=== PATIENT | male | born 1935 | race African-American/Black ===

== ENCOUNTER 2017-10-05 13:47 | Inpatient (IN) | payer MEDICARE, MEDICAID ==
[~2017-10-05] VITALS: Ht 165.1 cm; Wt 77.3 kg
[~2017-10-05 13:47] MED LIST: ALLO100T PO; FERR-63 PO; LISI10TA5 PO; NIAC500T5 PO; SYN150 PO
[2017-10-05 15:23] LABS: HEMATOCRIT. 40.1 % (42.0-52.0); HEMOGLOBIN. 12.8 g/dL (14.0-18.0); MEAN CORPUSCULAR HEMOGLOBIN 29.4 pg (28.0-32.0); MEAN CORPUSCULAR VOLUME 91.8 fL (80.0-94.0); MEAN PLATELET VOLUME 10.5 fl (7.4-10.4); PLATELET 110 x1000/uL (130-400); RED BLOOD CELL COUNT 4.37 mill/uL (4.7-6.1); RED CELL DISTRIBUTION WIDTH 22.4 % (11.6-14.6)
[2017-10-05 15:28] LABS: INR 1.1; PROTHROMBIN TIME 11.9 sec (9.4-11.6)
[2017-10-05 15:30] LABS: CLARITY URINE CLOUDY (CLEAR); COLOR URINE YELLOW (YELLOW); KETONES URINE NEGATIVE (NEGATIVE); LEUKOCYTE ESTERASE URINE TRACE (NEGATIVE); NITRITE URINE NEGATIVE (NEGATIVE); OCCULT BLOOD URINE NEGATIVE (NEGATIVE); PROTEIN URINE NEGATIVE (NEGATIVE); SPECIFIC GRAVITY URINE 1.017 (1.005-1.030)
[2017-10-05 15:33] LABS: CHLORIDE 125 mEq/L (98-107)
[2017-10-05 15:40] LABS: CREATINE KINASE 40 IU/L (39-308)
[2017-10-05 15:42] LABS: AMMONIA 34 uMol/L (<32)
[2017-10-05 15:53] LABS: PLATELET ESTIMATE DECREASED
[2017-10-05] MEDS ORDERED: SODIUM CHLORIDE 0.45% 250 ML IV ONE (16:00)
[2017-10-05 17:05] LABS: BG BASE EXCESS 2.6 mmol/L (-2.0-2.0); BG CARBOXYHEMOGLOBIN 1.2 % (0.5-1.5); BG DEOXYHEMOGLOBIN 1.5 % (0.0-5.0); BG FRACTION INSPIRED OXYGEN 32; BG HCO3 ACT 26.6 mmol/L (22.0-26.0); BG METHEMOGLOBIN 0.3 % (0.0-1.5); BG OXYGEN SATURATION 98.5 % (92.0-98.5); BG PCO2 39.1 mmHg (35.0-45.0); BG PH 7.451 (7.350-7.450); BG PO2 128.6 mmHg (75.0-100.0); BG SAMPLE SITE RIGHT RADIAL; BG TOTAL HEMOGLOBIN 13.5 g/dL (12.0-18.0); BG VENT MODE NASAL CANNULA
[2017-10-05 17:11] LABS: T4 FREE 0.59 ng/dL (0.76-1.46)
[2017-10-05] MEDS ORDERED: AZITHROMYCIN 500 MG in DEXT 5% WATER 250 ML IV SCH (19:00)
[2017-10-05] MEDS ORDERED: CEFTRIAXONE 1 G PREMIX 50 ML IV ONE (19:00)
[2017-10-05 23:00] VITALS: BP 92/60
[2017-10-05] MEDS ORDERED: DEXTROSE 50% WATER 50ML SYRINGE IV PRN (23:45)
[2017-10-06] MEDS: PANTOPRAZOLE SODIUM 40 MG/VIAL IV SCH ×2 (01:57→09:12)
[2017-10-06] MEDS: DEXTROSE 5% WATER 1,000 ML IV SCH ×4 (01:58→22:04)
[2017-10-06] MEDS ORDERED: MOM PO (03:23)
[2017-10-06] MEDS ORDERED: BISA10SU62 RC (03:23)
[2017-10-06] MEDS ORDERED: PROT40 PO (03:23)
[2017-10-06] MEDS ORDERED: INSLIS SUBCUT (03:23)
[2017-10-06] MEDS ORDERED: LEVO112T7 PO (03:23)
[2017-10-06] MEDS ORDERED: FE300LUD PO (03:23)
[2017-10-06] MEDS ORDERED: NA P230E RC (03:23)
[2017-10-06] MEDS ORDERED: MEMA10TA2 PO (03:23)
[2017-10-06] MEDS ORDERED: HYDR12.54 PO (03:23)
[2017-10-06] MEDS ORDERED: QUET25TA PO (03:23)
[2017-10-06] MEDS ORDERED: IPRA3AMP9 HHN (03:23)
[2017-10-06] MEDS ORDERED: MULT-1146 PO (03:23)
[2017-10-06 04:00] VITALS: BP 101/69
[2017-10-06 05:42] LABS: BASOPHILS % 0.3 % (0.0-2.0); EOSINOPHILS % 0.5 % (0.0-5.0); HEMATOCRIT. 39.8 % (42.0-52.0); HEMOGLOBIN. 12.5 g/dL (14.0-18.0); LYMPHOCYTES % 8.4 % (20.0-50.0); MEAN CORPUSCULAR VOLUME 92.1 fL (80.0-94.0); MEAN PLATELET VOLUME 10.2 fl (7.4-10.4); MONOCYTES % 7.5 % (2.0-8.0); NEUTROPHILS % 83.3 % (40.0-76.0); PLATELET 79 x1000/uL (130-400); RED BLOOD CELL COUNT 4.32 mill/uL (4.7-6.1); RED CELL DISTRIBUTION WIDTH 22.1 % (11.6-14.6)
[2017-10-06] MEDS: INSULIN LISPRO 100 UNITS/ML SUBCUT SCH ×4 (06:00→23:54)
[2017-10-06 06:02] LABS: INR 1.2; PARTIAL THROMBOPLASTIN TIME 30.5 sec (23.4-31.0); PROTHROMBIN TIME 12.2 sec (9.4-11.6)
[2017-10-06 06:15] LABS: CHLORIDE 123 mEq/L (98-107)
[2017-10-06] MEDS: BLOOD SUGAR DIAGNOSTIC STRIP TEST SCH ×4 (06:24→17:39)
[2017-10-06] MEDS: LEVOTHYROXINE SODIUM 112MCG TABLET PO SCH ×2 (07:40→08:37)
[2017-10-06 08:00] VITALS: BP 101/70
[2017-10-06] MEDS ORDERED: ALLOPURINOL 100 MG TABLET PO SCH (09:00)
[2017-10-06] MEDS: ENOXAPARIN 30MG/0.3ML SYR SUBCUT SCH (09:00)
[2017-10-06 12:00] VITALS: BP 80/59
[2017-10-06] MEDS ORDERED: SODIUM CHLORIDE 0.9% 250 ML IV ONE (12:20)
[2017-10-06] MEDS ORDERED: CEFAZOLIN 1000MG PREMIX 50 ML IV NR (13:00)
[2017-10-06] MEDS ORDERED: FENTANYL CITRATE/PF 50MCG/ML 2ML VIAL ONE (14:45)
[2017-10-06] MEDS ORDERED: MIDAZOLAM HCL 5 MG/5 ML VIAL ONE (14:46)
[2017-10-06] MEDS ORDERED: CEFAZOLIN 1000MG PREMIX 50 ML IV ONE (15:02)
[2017-10-06] MEDS ORDERED: MIDAZOLAM HCL 5 MG/5 ML VIAL IV PRN (15:26)
[2017-10-06] MEDS ORDERED: SIMETHICONE 40 MG/0.6 ML 30ML ONE (16:00)
[2017-10-06] MEDS ORDERED: BACTERIOSTATIC SODIUM CHLORIDE 0.9% 30ML VIAL IJ ONE (16:00)
[2017-10-06 18:45] LABS: PREALBUMIN 8.8 mg/dL (20.0-40.0)
[2017-10-06 20:00] VITALS: BP 99/72
[2017-10-06] MEDS: IPRATROPIUM/ALBUTEROL 0.5-3(2.5)MG/3ML NEB HHN SCH (20:25)
[2017-10-06] MEDS: AZITHROMYCIN 500 MG in DEXT 5% WATER 250 ML IV SCH (20:39)
[2017-10-06] MEDS: MEMANTINE HCL 5MG TABLET NG SCH (20:39)
[2017-10-06] MEDS ORDERED: CEFTRIAXONE 1,000 MG in DEXTROSE 5% WATER 50 ML IV SCH (22:00)
[2017-10-06] MEDS: CEFTRIAXONE 1 G PREMIX 50 ML IV SCH (22:03)
[2017-10-07] VITALS: BP 98/80
[2017-10-07] MEDS: IPRATROPIUM/ALBUTEROL 0.5-3(2.5)MG/3ML NEB HHN SCH ×4 (01:48→20:16)
[2017-10-07 04:00] VITALS: BP 92/57
[2017-10-07] MEDS: BLOOD SUGAR DIAGNOSTIC STRIP TEST SCH ×3 (05:37→23:29)
[2017-10-07] MEDS: INSULIN LISPRO 100 UNITS/ML SUBCUT SCH ×3 (05:37→23:29)
[2017-10-07 07:03] LABS: HEMATOCRIT. 38.9 % (42.0-52.0); HEMOGLOBIN. 12.2 g/dL (14.0-18.0); MEAN CORPUSCULAR HEMOGLOBIN 29.1 pg (28.0-32.0); MEAN CORPUSCULAR VOLUME 92.5 fL (80.0-94.0); MEAN PLATELET VOLUME 10.2 fl (7.4-10.4); PLATELET 89 x1000/uL (130-400); RED BLOOD CELL COUNT 4.21 mill/uL (4.7-6.1); RED CELL DISTRIBUTION WIDTH 21.6 % (11.6-14.6)
[2017-10-07 08:00] VITALS: BP 99/68
[2017-10-07] MEDS: ALLOPURINOL 100 MG TABLET NG SCH (08:21)
[2017-10-07] MEDS: LEVOTHYROXINE SODIUM 125MCG TABLET NG SCH (08:21)
[2017-10-07] MEDS: MEMANTINE HCL 5MG TABLET NG SCH ×2 (08:21→20:08)
[2017-10-07] MEDS: FERROUS SULFATE 300MG/5ML UDC GT SCH (08:21)
[2017-10-07] MEDS: ENOXAPARIN 30MG/0.3ML SYR SUBCUT SCH (08:23)
[2017-10-07] MEDS: PANTOPRAZOLE SODIUM 40 MG/VIAL IV SCH (09:57)
[2017-10-07] MEDS: DEXTROSE 5% WATER 1,000 ML IV SCH ×2 (10:11→20:08)
[2017-10-07 12:00] VITALS: BP 95/50
[2017-10-07 13:41] LABS: PLATELET ESTIMATE DECREASED
[2017-10-07 16:00] VITALS: BP 97/61
[2017-10-07 20:00] VITALS: BP 105/66
[2017-10-07] MEDS: AZITHROMYCIN 500 MG in DEXT 5% WATER 250 ML IV SCH (20:08)
[2017-10-07] MEDS: CEFTRIAXONE 1 G PREMIX 50 ML IV SCH (21:30)
[2017-10-08] VITALS: BP 97/64
[2017-10-08] MEDS: IPRATROPIUM/ALBUTEROL 0.5-3(2.5)MG/3ML NEB HHN SCH ×4 (02:35→20:05)
[2017-10-08 04:00] VITALS: BP 108/66
[2017-10-08] MEDS: BLOOD SUGAR DIAGNOSTIC STRIP TEST SCH ×4 (05:43→23:58)
[2017-10-08] MEDS: INSULIN LISPRO 100 UNITS/ML SUBCUT SCH ×4 (05:43→23:58)
[2017-10-08 08:00] VITALS: BP 90/66
[2017-10-08] MEDS: LEVOTHYROXINE SODIUM 125MCG TABLET NG SCH (08:44)
[2017-10-08] MEDS: MEMANTINE HCL 5MG TABLET NG SCH ×2 (08:44→21:31)
[2017-10-08] MEDS: ALLOPURINOL 100 MG TABLET NG SCH (08:44)
[2017-10-08] MEDS: FERROUS SULFATE 300MG/5ML UDC GT SCH (08:44)
[2017-10-08] MEDS: ENOXAPARIN 30MG/0.3ML SYR SUBCUT SCH (08:45)
[2017-10-08] MEDS: PANTOPRAZOLE SODIUM 40 MG/VIAL IV SCH (08:47)
[2017-10-08 08:52] LABS: HEMATOCRIT. 34.5 % (42.0-52.0); HEMOGLOBIN. 11.1 g/dL (14.0-18.0); MEAN CORPUSCULAR HEMOGLOBIN 29.5 pg (28.0-32.0); MEAN CORPUSCULAR VOLUME 91.6 fL (80.0-94.0); MEAN PLATELET VOLUME 9.9 fl (7.4-10.4); PLATELET 97 x1000/uL (130-400); RED BLOOD CELL COUNT 3.76 mill/uL (4.7-6.1); RED CELL DISTRIBUTION WIDTH 20.6 % (11.6-14.6)
[2017-10-08 12:00] VITALS: BP 105/63
[2017-10-08 13:35] LABS: PLATELET ESTIMATE DECREASED
[2017-10-08 16:00] VITALS: BP 99/66
[2017-10-08 20:00] VITALS: BP 163/61
[2017-10-08] MEDS: AZITHROMYCIN 500 MG TABLET GT SCH (21:31)
[2017-10-08] MEDS: CEFTRIAXONE 1 G PREMIX 50 ML IV SCH (21:31)
[2017-10-08] MEDS: DEXTROSE 5% WATER 1,000 ML IV SCH (21:32)
[2017-10-09] VITALS: BP 111/66
[2017-10-09] MEDS: IPRATROPIUM/ALBUTEROL 0.5-3(2.5)MG/3ML NEB HHN SCH ×4 (01:20→21:37)
[2017-10-09 04:00] VITALS: BP 112/56
[2017-10-09] MEDS: DEXTROSE 5% WATER 1,000 ML IV SCH ×2 (05:43→14:48)
[2017-10-09] MEDS: INSULIN LISPRO 100 UNITS/ML SUBCUT SCH ×3 (05:45→18:30)
[2017-10-09] MEDS: BLOOD SUGAR DIAGNOSTIC STRIP TEST SCH ×3 (05:45→18:00)
[2017-10-09 06:40] LABS: HEMATOCRIT. 33.7 % (42.0-52.0); HEMOGLOBIN. 10.5 g/dL (14.0-18.0); MEAN CORPUSCULAR HEMOGLOBIN 28.7 pg (28.0-32.0); MEAN CORPUSCULAR VOLUME 91.7 fL (80.0-94.0); MEAN PLATELET VOLUME 9.8 fl (7.4-10.4); PLATELET 114 x1000/uL (130-400); RED BLOOD CELL COUNT 3.67 mill/uL (4.7-6.1); RED CELL DISTRIBUTION WIDTH 20.6 % (11.6-14.6)
[2017-10-09 07:49] LABS: CHLORIDE 111 mEq/L (98-107)
[2017-10-09 07:54] LABS: PHOSPHORUS 1.8 mg/dL (2.5-4.9); T4 FREE 0.61 ng/dL (0.76-1.46)
[2017-10-09 08:00] VITALS: BP 118/57
[2017-10-09] MEDS: LEVOTHYROXINE SODIUM 125MCG TABLET NG SCH (09:57)
[2017-10-09] MEDS: PANTOPRAZOLE SODIUM 40 MG/VIAL IV SCH (09:57)
[2017-10-09] MEDS: ALLOPURINOL 100 MG TABLET NG SCH (09:57)
[2017-10-09] MEDS: MEMANTINE HCL 5MG TABLET NG SCH ×2 (09:57→21:21)
[2017-10-09] MEDS: FERROUS SULFATE 300MG/5ML UDC GT SCH (09:57)
[2017-10-09] MEDS: ENOXAPARIN 30MG/0.3ML SYR SUBCUT SCH (09:59)
[2017-10-09 12:00] VITALS: BP 112/78
[2017-10-09 16:00] VITALS: BP 103/47
[2017-10-09 16:24] LABS: PLATELET ESTIMATE DECREASED
[2017-10-09] MEDS: QUETIAPINE FUMARATE 25MG TABLET PO SCH (18:32)
[2017-10-09 20:00] VITALS: BP 105/64
[2017-10-09] MEDS ORDERED: POTASSIUM PHOS,M-BASIC-D-BASIC 20 MMOL in DEXT 5% WATER 243.3333 ML IV NR (20:00)
[2017-10-09] MEDS: LIOTHYRONINE SODIUM 5MCG TABLET PO SCH (21:20)
[2017-10-09] MEDS: LEVOTHYROXINE SODIUM 50MCG TABLET PO SCH (21:21)
[2017-10-09] MEDS: AZITHROMYCIN 500 MG TABLET GT SCH (21:21)
[2017-10-10] VITALS: BP 112/67
[2017-10-10] MEDS: BLOOD SUGAR DIAGNOSTIC STRIP TEST SCH ×5 (00:21→23:59)
[2017-10-10] MEDS: CEFTRIAXONE 1 G PREMIX 50 ML IV SCH ×2 (01:40→22:14)
[2017-10-10] MEDS: IPRATROPIUM/ALBUTEROL 0.5-3(2.5)MG/3ML NEB HHN SCH ×4 (02:31→20:40)
[2017-10-10 04:00] VITALS: BP 111/63
[2017-10-10] MEDS: INSULIN LISPRO 100 UNITS/ML SUBCUT SCH ×5 (06:00→23:59)
[2017-10-10 07:42] LABS: PHOSPHORUS 3.2 mg/dL (2.5-4.9)
[2017-10-10] MEDS: LEVOTHYROXINE SODIUM 50MCG TABLET PO SCH (08:18)
[2017-10-10 08:24] VITALS: BP 115/49
[2017-10-10] MEDS: QUETIAPINE FUMARATE 25MG TABLET PO SCH (09:24)
[2017-10-10] MEDS: FERROUS SULFATE 300MG/5ML UDC GT SCH (09:24)
[2017-10-10] MEDS: LIOTHYRONINE SODIUM 5MCG TABLET PO SCH ×2 (09:24→18:17)
[2017-10-10] MEDS: ENOXAPARIN 30MG/0.3ML SYR SUBCUT SCH (09:24)
[2017-10-10] MEDS: MEMANTINE HCL 5MG TABLET NG SCH ×2 (09:24→22:14)
[2017-10-10] MEDS: ALLOPURINOL 100 MG TABLET NG SCH (09:24)
[2017-10-10] MEDS: PANTOPRAZOLE SODIUM 40 MG/VIAL IV SCH (09:24)
[2017-10-10 12:48] VITALS: BP 91/54
[2017-10-10 17:02] VITALS: BP 94/55
[2017-10-10 20:00] VITALS: BP 106/61
[2017-10-10] MEDS: AZITHROMYCIN 500 MG TABLET GT SCH (22:14)
[2017-10-10 22:33] LABS: BG BASE EXCESS 1.5 mmol/L (-2.0-2.0); BG CARBOXYHEMOGLOBIN 0.3 % (0.5-1.5); BG DEOXYHEMOGLOBIN 2.6 % (0.0-5.0); BG FRACTION INSPIRED OXYGEN 28; BG HCO3 ACT 26.5 mmol/L (22.0-26.0); BG METHEMOGLOBIN 0.2 % (0.0-1.5); BG OXYGEN SATURATION 97.4 % (92.0-98.5); BG OXYHEMOGLOBIN 96.9 % (94.0-97.0); BG PCO2 43.2 mmHg (35.0-45.0); BG PH 7.405 (7.350-7.450); BG PO2 97.1 mmHg (75.0-100.0); BG SAMPLE SITE RIGHT RADIAL; BG TOTAL HEMOGLOBIN 11.6 g/dL (12.0-18.0); BG VENT MODE NASAL CANNULA
[2017-10-11] VITALS: BP 95/65
[2017-10-11] MEDS: IPRATROPIUM/ALBUTEROL 0.5-3(2.5)MG/3ML NEB HHN SCH ×4 (00:47→19:59)
[2017-10-11 04:00] VITALS: BP 95/58
[2017-10-11] MEDS: BLOOD SUGAR DIAGNOSTIC STRIP TEST SCH ×4 (05:39→23:40)
[2017-10-11] MEDS: INSULIN LISPRO 100 UNITS/ML SUBCUT SCH ×4 (05:41→23:41)
[2017-10-11 08:00] VITALS: BP 98/59
[2017-10-11 08:00] LABS: PHOSPHORUS 3.2 mg/dL (2.5-4.9)
[2017-10-11] MEDS: FAMOTIDINE 20MG TABLET GT SCH (08:34)
[2017-10-11] MEDS: QUETIAPINE FUMARATE 25MG TABLET PO SCH (08:34)
[2017-10-11] MEDS: ENOXAPARIN 40MG/0.4ML SYR SUBCUT SCH (08:34)
[2017-10-11] MEDS: FERROUS SULFATE 300MG/5ML UDC GT SCH (08:34)
[2017-10-11] MEDS: LEVOTHYROXINE SODIUM 50MCG TABLET PO SCH (08:34)
[2017-10-11] MEDS: ALLOPURINOL 100 MG TABLET NG SCH (08:34)
[2017-10-11] MEDS: LIOTHYRONINE SODIUM 5MCG TABLET PO SCH ×2 (08:34→17:44)
[2017-10-11] MEDS: MEMANTINE HCL 5MG TABLET NG SCH ×2 (08:34→21:00)
[2017-10-11 12:00] VITALS: BP 96/57
[2017-10-11 16:00] VITALS: BP 92/59
[2017-10-11 20:12] VITALS: BP 100/59
[2017-10-11] MEDS: AZITHROMYCIN 500 MG TABLET GT SCH (21:00)
[2017-10-11] MEDS: CEFTRIAXONE 1 G PREMIX 50 ML IV SCH (21:48)
[2017-10-11] MEDS ORDERED: SODIUM POLYSTYRENE SULFONATE 15 G/60 ML BOT GT SCH (23:42)
[2017-10-12] VITALS: BP 94/62
[2017-10-12] MEDS: IPRATROPIUM/ALBUTEROL 0.5-3(2.5)MG/3ML NEB HHN SCH ×4 (00:44→20:39)
[2017-10-12 04:00] VITALS: BP 91/60
[2017-10-12] MEDS ORDERED: SODIUM POLYSTYRENE SULFONATE 15 G/60 ML BOT GT SCH (04:00)
[2017-10-12] MEDS: BLOOD SUGAR DIAGNOSTIC STRIP TEST SCH ×3 (05:56→16:51)
[2017-10-12] MEDS: INSULIN LISPRO 100 UNITS/ML SUBCUT SCH ×3 (05:57→16:52)
[2017-10-12 07:16] LABS: HEMATOCRIT. 30.3 % (42.0-52.0); HEMOGLOBIN. 9.9 g/dL (14.0-18.0); MEAN CORPUSCULAR HEMOGLOBIN 29.3 pg (28.0-32.0); MEAN CORPUSCULAR VOLUME 89.7 fL (80.0-94.0); MEAN PLATELET VOLUME 9.5 fl (7.4-10.4); PLATELET 227 x1000/uL (130-400); RED BLOOD CELL COUNT 3.38 mill/uL (4.7-6.1); RED CELL DISTRIBUTION WIDTH 19.6 % (11.6-14.6)
[2017-10-12 08:00] VITALS: BP 104/69
[2017-10-12] MEDS: FERROUS SULFATE 300MG/5ML UDC GT SCH (08:56)
[2017-10-12] MEDS: ALLOPURINOL 100 MG TABLET NG SCH (08:56)
[2017-10-12] MEDS: ENOXAPARIN 40MG/0.4ML SYR SUBCUT SCH (08:56)
[2017-10-12] MEDS: MEMANTINE HCL 5MG TABLET NG SCH ×2 (08:57→21:49)
[2017-10-12] MEDS: LEVOTHYROXINE SODIUM 50MCG TABLET PO SCH (08:57)
[2017-10-12] MEDS: FAMOTIDINE 20MG TABLET GT SCH (08:57)
[2017-10-12] MEDS: LIOTHYRONINE SODIUM 5MCG TABLET PO SCH ×2 (08:57→17:01)
[2017-10-12 09:13] LABS: BG BASE EXCESS 3.2 mmol/L (-2.0-2.0); BG CARBOXYHEMOGLOBIN 0.4 % (0.5-1.5); BG DEOXYHEMOGLOBIN 9.7 % (0.0-5.0); BG FRACTION INSPIRED OXYGEN 21; BG METHEMOGLOBIN 0.2 % (0.0-1.5); BG OXYGEN SATURATION 90.2 % (92.0-98.5); BG OXYHEMOGLOBIN 89.7 % (94.0-97.0); BG PCO2 49.8 mmHg (35.0-45.0); BG PH 7.383 (7.350-7.450); BG PO2 59.1 mmHg (75.0-100.0); BG SAMPLE SITE RIGHT BRACHIAL; BG TOTAL HEMOGLOBIN 10.7 g/dL (12.0-18.0); BG VENT MODE ROOM AIR
[2017-10-12 12:00] VITALS: BP 107/69
[2017-10-12 14:55] LABS: PLATELET ESTIMATE NORMAL
[2017-10-12 16:00] VITALS: BP 100/68
[2017-10-12 20:00] VITALS: BP 117/63
[2017-10-12] MEDS: AZITHROMYCIN 500 MG TABLET GT SCH (21:49)
[2017-10-12] MEDS: CEFTRIAXONE 1 G PREMIX 50 ML IV SCH (21:49)
[2017-10-13] MEDS: BLOOD SUGAR DIAGNOSTIC STRIP TEST SCH ×2 (00:03→05:49)
[2017-10-13 00:12] VITALS: BP 109/74
[2017-10-13] MEDS: IPRATROPIUM/ALBUTEROL 0.5-3(2.5)MG/3ML NEB HHN SCH ×3 (01:00→14:01)
[2017-10-13 04:00] VITALS: BP 116/67
[2017-10-13] MEDS: INSULIN LISPRO 100 UNITS/ML SUBCUT SCH ×2 (05:49)
[2017-10-13] MEDS: LEVOTHYROXINE SODIUM 50MCG TABLET PO SCH (06:11)
[2017-10-13 08:00] VITALS: BP 107/69
[2017-10-13] MEDS: LIOTHYRONINE SODIUM 5MCG TABLET PO SCH (09:01)
[2017-10-13] MEDS: MEMANTINE HCL 5MG TABLET NG SCH (09:01)
[2017-10-13] MEDS: ALLOPURINOL 100 MG TABLET NG SCH (09:01)
[2017-10-13] MEDS: ENOXAPARIN 40MG/0.4ML SYR SUBCUT SCH (09:01)
[2017-10-13] MEDS: FAMOTIDINE 20MG TABLET GT SCH (09:01)
[2017-10-13] MEDS: FERROUS SULFATE 300MG/5ML UDC GT SCH (09:03)
[2017-10-13 12:00] VITALS: BP 116/73
[2017-10-13 15:05] VITALS: BP 107/69
[2017-10-13 16:00] VITALS: BP 124/60
== END 2017-10-13 17:43 | DRG 177 ==
LOC: ER 14:00 → 7WST 18:57 → EDBEDREQTM 19:00 → EDBEDREQ 19:00 → ENRESERV 20:52
PROVIDERS: ADMIT Internal Medicine Pulmonary Disease; ATTEND Internal Medicine Pulmonary Disease
PROC: 0DH64UZ Insertion of Feeding Device into Stomach, Percutaneous Endoscopic Approach (ICD-10-PCS; principal; 2017-10-06 15:00)
DX: J69.0 Pneumonitis due to inhalation of food and vomit (principal); E43 Unspecified severe protein-calorie malnutrition; J96.91 Respiratory failure, unspecified with hypoxia; L89.309 Pressure ulcer of unspecified buttock, unspecified stage; N17.9 Acute kidney failure, unspecified; G93.41 Metabolic encephalopathy; G30.9 Alzheimer's disease, unspecified; E11.22 Type 2 diabetes mellitus with diabetic chronic kidney disease; F02.80 Dementia in other diseases classified elsewhere, unspecified severity, without behavioral disturbance, psychotic disturbance, mood disturbance, and anxiety; I13.0 Hypertensive heart and chronic kidney disease with heart failure and stage 1 through stage 4 chronic kidney disease, or unspecified chronic kidney disease; E87.0 Hyperosmolality and hypernatremia; E87.2 Acidosis; I50.22 Chronic systolic (congestive) heart failure; E87.5 Hyperkalemia; E86.0 Dehydration; E03.9 Hypothyroidism, unspecified; E05.90 Thyrotoxicosis, unspecified without thyrotoxic crisis or storm; E06.3 Autoimmune thyroiditis; E78.5 Hyperlipidemia, unspecified; E83.39 Other disorders of phosphorus metabolism; I25.10 Atherosclerotic heart disease of native coronary artery without angina pectoris; F20.9 Schizophrenia, unspecified; I45.10 Unspecified right bundle-branch block; I48.0 Paroxysmal atrial fibrillation; J44.9 Chronic obstructive pulmonary disease, unspecified; M10.9 Gout, unspecified; N18.3 Chronic kidney disease, stage 3 (moderate); R62.7 Adult failure to thrive; Z95.810 Presence of automatic (implantable) cardiac defibrillator; Z95.5 Presence of coronary angioplasty implant and graft; Z79.899 Other long term (current) drug therapy; Z82.49 Family history of ischemic heart disease and other diseases of the circulatory system
CPT/HCPCS: 36415; 36600; 51702; 70450; 71045; 80048; 80053; 81003; 82140; 82375; 82533; 82550; 82805; 82962; 83036; 83520; 83605; 83735; 83880; 84100; 84134; 84439; 84443; 84481; 84484; 84550; 85025; 85610; 85730; 87040; 92610; 94640; 96365; 96375; 99285; A6261; C1893; C9113; J0456; J0690; J0696; J1650; J1815; J2250; J3010; J3490; J7050; J7060; J7070; J7620; A4315

== ENCOUNTER 2017-10-15 20:57 | Inpatient (IN) | payer MEDICARE, MEDICAID ==
[~2017-10-15] VITALS: Ht 170.2 cm; Wt 96.2 kg
[~2017-10-15 20:57] MED LIST changes: +BISA10SU62 RC; +FE300LUD PO; -FERR-63 PO; +HYDR12.54 PO; +INSLIS SUBCUT; +IPRA3AMP9 HHN; +LEVO112T7 PO; +MEMA10TA2 PO; +MOM PO; +MULT-1146 PO; +NA P230E RC; +PROT40 PO; +QUET25TA PO; -SYN150 PO
[2017-10-15] MEDS ORDERED: ACETAMINOPHEN 325MG TABLET PO STA (21:25)
[2017-10-15] MEDS ORDERED: SODIUM CHLORIDE 0.9% 1000ML BAG (SEPSIS BOLUS) IV ONE (21:30)
[2017-10-15 21:58] LABS: CHLORIDE 111 mEq/L (98-107); HEMATOCRIT. 30.3 % (42.0-52.0); MEAN CORPUSCULAR HEMOGLOBIN 29.6 pg (28.0-32.0); MEAN CORPUSCULAR VOLUME 89.7 fL (80.0-94.0); MEAN PLATELET VOLUME 8.4 fl (7.4-10.4); PLATELET 374 x1000/uL (130-400); RED BLOOD CELL COUNT 3.38 mill/uL (4.7-6.1); RED CELL DISTRIBUTION WIDTH 19.7 % (11.6-14.6)
[2017-10-15 22:00] LABS: INR 1.3; PROTHROMBIN TIME 13.4 sec (9.4-11.6)
[2017-10-15 23:13] LABS: CLARITY URINE CLOUDY (CLEAR); COLOR URINE YELLOW (YELLOW); KETONES URINE NEGATIVE (NEGATIVE); LEUKOCYTE ESTERASE URINE TRACE (NEGATIVE); NITRITE URINE NEGATIVE (NEGATIVE); OCCULT BLOOD URINE 2+ (NEGATIVE); PROTEIN URINE 1+ (NEGATIVE); SPECIFIC GRAVITY URINE 1.019 (1.005-1.030); UROBILINOGEN URINE 0.2 E.U./dL (0.2-1.0)
[2017-10-15] MEDS ORDERED: PIPERACILLIN/TAZ 3.375G PREMIX 50 ML IV ONE (23:15)
[2017-10-15] MEDS ORDERED: VANCOMYCIN 1 G PREMIX 200 ML IV ONE (23:15)
[2017-10-16] MEDS: IPRATROPIUM/ALBUTEROL 0.5-3(2.5)MG/3ML NEB HHN SCH (00:10)
[2017-10-16 02:04] LABS: ATYPICAL LYMPHOCYTES 1; NUCLEATED RED BLOOD CELLS 2 /100 WBC; PLATELET ESTIMATE NORMAL
[2017-10-16 11:02] VITALS: BP 116/72
[2017-10-16 12:00] VITALS: BP 116/72
[2017-10-16 14:36] LABS: BG CARBOXYHEMOGLOBIN 0.3 % (0.5-1.5); BG DEOXYHEMOGLOBIN 2.9 % (0.0-5.0); BG FRACTION INSPIRED OXYGEN 28; BG HCO3 ACT 30.5 mmol/L (22.0-26.0); BG METHEMOGLOBIN 0.3 % (0.0-1.5); BG OXYGEN SATURATION 97.1 % (92.0-98.5); BG OXYHEMOGLOBIN 96.5 % (94.0-97.0); BG PCO2 64.4 mmHg (35.0-45.0); BG PH 7.293 (7.350-7.450); BG PO2 112.2 mmHg (75.0-100.0); BG SAMPLE SITE LEFT RADIAL; BG TOTAL HEMOGLOBIN 9.3 g/dL (12.0-18.0); BG VENT MODE NASAL CANNULA
[2017-10-16 16:00] VITALS: BP 97/54
[2017-10-16] MEDS ORDERED: NA PHOS,M-B/NA PHOS,DI-BA ENEMA 118ML PR PRN (19:00)
[2017-10-16] MEDS ORDERED: DOCUSATE SODIUM 100MG CAPSULE PO PRN (19:00)
[2017-10-16] MEDS ORDERED: ACETAMINOPHEN 650MG/20.3ML UDC GT PRN (19:00)
[2017-10-16] MEDS ORDERED: IPRATROPIUM/ALBUTEROL 0.5-3(2.5)MG/3ML NEB INH PRN (19:00)
[2017-10-16 20:00] VITALS: BP 112/61
[2017-10-16] MEDS ORDERED: PIPERACILLIN/TAZ 3.375G PREMIX 50 ML IV SCH (21:00)
[2017-10-16] MEDS ORDERED: VANCOMYCIN 500 MG PREMIX 100 ML IV NR (21:30)
[2017-10-16] MEDS: PANTOPRAZOLE SODIUM 40 MG/VIAL IV SCH (21:56)
[2017-10-16] MEDS: LEVOTHYROXINE SODIUM 75MCG TABLET NG SCH (21:56)
[2017-10-16] MEDS: DEXT 5%/0.45% NACL 1000ML 1,000 ML IV SCH (21:56)
[2017-10-16] MEDS: LIOTHYRONINE SODIUM 5MCG TABLET NG SCH (21:56)
[2017-10-16] MEDS: ENOXAPARIN 30MG/0.3ML SYR SUBCUT SCH (21:57)
[2017-10-16] MEDS: PIPERACILLIN/TAZ 3.375G PREMIX 50 ML IV SCH (23:12)
[2017-10-17] VITALS: BP 116/78
[2017-10-17 00:07] LABS: CREATINE KINASE MB FRACTION 2.1 ng/mL (0.5-3.6)
[2017-10-17] MEDS: IPRATROPIUM/ALBUTEROL 0.5-3(2.5)MG/3ML NEB HHN SCH ×4 (00:15→20:50)
[2017-10-17 04:00] VITALS: BP 105/77
[2017-10-17] MEDS: LEVOTHYROXINE SODIUM 75MCG TABLET NG SCH (06:36)
[2017-10-17] MEDS: PIPERACILLIN/TAZ 3.375G PREMIX 50 ML IV SCH ×3 (06:37→21:48)
[2017-10-17] MEDS: INSULIN LISPRO 100 UNITS/ML SUBCUT SCH ×4 (06:37→21:00)
[2017-10-17] MEDS: BLOOD SUGAR DIAGNOSTIC STRIP TEST SCH ×4 (06:37→21:08)
[2017-10-17 06:56] LABS: PHOSPHORUS 3.4 mg/dL (2.5-4.9)
[2017-10-17 06:57] LABS: HEMATOCRIT. 31.3 % (42.0-52.0); HEMOGLOBIN. 9.9 g/dL (14.0-18.0); MEAN CORPUSCULAR HEMOGLOBIN 29.2 pg (28.0-32.0); MEAN CORPUSCULAR VOLUME 92.7 fL (80.0-94.0); MEAN PLATELET VOLUME 8.5 fl (7.4-10.4); PLATELET 333 x1000/uL (130-400); RED BLOOD CELL COUNT 3.37 mill/uL (4.7-6.1); RED CELL DISTRIBUTION WIDTH 19.7 % (11.6-14.6)
[2017-10-17 08:00] VITALS: BP 93/54
[2017-10-17] MEDS: PANTOPRAZOLE SODIUM 40 MG/VIAL IV SCH (08:39)
[2017-10-17] MEDS: LIOTHYRONINE SODIUM 5MCG TABLET NG SCH ×2 (08:39→16:40)
[2017-10-17 08:51] LABS: CREATINE KINASE MB FRACTION 2.1 ng/mL (0.5-3.6)
[2017-10-17 09:33] LABS: BG BASE EXCESS 2.6 mmol/L (-2.0-2.0); BG CARBOXYHEMOGLOBIN 0.5 % (0.5-1.5); BG DEOXYHEMOGLOBIN 12.6 % (0.0-5.0); BG FRACTION INSPIRED OXYGEN 21; BG HCO3 ACT 28.8 mmol/L (22.0-26.0); BG METHEMOGLOBIN 0.2 % (0.0-1.5); BG OXYGEN SATURATION 87.3 % (92.0-98.5); BG OXYHEMOGLOBIN 86.7 % (94.0-97.0); BG PCO2 52.9 mmHg (35.0-45.0); BG PH 7.354 (7.350-7.450); BG PO2 58.3 mmHg (75.0-100.0); BG SAMPLE SITE LEFT RADIAL; BG VENT MODE ROOM AIR
[2017-10-17] MEDS: VANCOMYCIN 750 MG PREMIX 150 ML IV SCH (10:33)
[2017-10-17] MEDS: DEXT 5%/0.45% NACL 1000ML 1,000 ML IV SCH (11:33)
[2017-10-17 12:00] VITALS: BP 94/61
[2017-10-17] MEDS: ZINC SULFATE 220 MG ( 50 ) CAPSULE PO SCH (15:54)
[2017-10-17] MEDS: FOLIC ACID/VITAMIN B COMP W-C TABLET PO SCH (15:54)
[2017-10-17 16:00] VITALS: BP 99/63
[2017-10-17 20:00] VITALS: BP 152/64
[2017-10-17] MEDS: ASCORBIC ACID 250 MG TABLET PO SCH (21:48)
[2017-10-17] MEDS: ENOXAPARIN 30MG/0.3ML SYR SUBCUT SCH (21:48)
[2017-10-18] VITALS: BP 133/74
[2017-10-18] MEDS: IPRATROPIUM/ALBUTEROL 0.5-3(2.5)MG/3ML NEB HHN SCH ×6 (01:22→21:29)
[2017-10-18 01:29] LABS: PLATELET ESTIMATE NORMAL
[2017-10-18] MEDS: DEXT 5%/0.45% NACL 1000ML 1,000 ML IV SCH (03:22)
[2017-10-18 04:00] VITALS: BP 121/76
[2017-10-18] MEDS: INSULIN LISPRO 100 UNITS/ML SUBCUT SCH ×4 (06:40→21:00)
[2017-10-18] MEDS: BLOOD SUGAR DIAGNOSTIC STRIP TEST SCH ×4 (06:40→21:45)
[2017-10-18] MEDS: PIPERACILLIN/TAZ 3.375G PREMIX 50 ML IV SCH ×3 (06:48→22:04)
[2017-10-18] MEDS: LEVOTHYROXINE SODIUM 75MCG TABLET NG SCH (06:48)
[2017-10-18 07:04] LABS: HEMATOCRIT. 32.2 % (42.0-52.0); MEAN CORPUSCULAR HEMOGLOBIN 28.5 pg (28.0-32.0); MEAN CORPUSCULAR VOLUME 92.2 fL (80.0-94.0); MEAN PLATELET VOLUME 8.6 fl (7.4-10.4); PLATELET 345 x1000/uL (130-400); RED CELL DISTRIBUTION WIDTH 19.9 % (11.6-14.6)
[2017-10-18 08:00] VITALS: BP 123/74
[2017-10-18] MEDS: PANTOPRAZOLE SODIUM 40 MG/VIAL IV SCH (08:59)
[2017-10-18] MEDS: ZINC SULFATE 220 MG ( 50 ) CAPSULE PO SCH (08:59)
[2017-10-18] MEDS: ASCORBIC ACID 250 MG TABLET PO SCH ×2 (08:59→21:49)
[2017-10-18] MEDS: VANCOMYCIN 750 MG PREMIX 150 ML IV SCH (08:59)
[2017-10-18] MEDS: LIOTHYRONINE SODIUM 5MCG TABLET NG SCH ×2 (08:59→17:59)
[2017-10-18] MEDS: FOLIC ACID/VITAMIN B COMP W-C TABLET PO SCH (08:59)
[2017-10-18 12:00] VITALS: BP 127/73
[2017-10-18 13:07] LABS: A/G RATIO 0.6 (0.7-1.7); ALBUMIN 2.2 g/dL (2.9-4.4); ALPHA-1-GLOBULIN 0.4 g/dL (0.0-0.4); ALPHA-2-GLOBULIN 0.9 g/dL (0.4-1.0); BETA GLOBULIN 0.9 g/dL (0.7-1.3); GAMMA GLOBULINS 1.7 g/dL (0.4-1.8); GLOBULIN TOTAL 3.9 g/dL (2.2-3.9); M-SPIKE Not Observed g/dL (Not Observed); TOTAL PROTEIN SERUM 6.1 g/dL (6.0-8.5)
[2017-10-18 14:20] LABS: NUCLEATED RED BLOOD CELLS 1 /100 WBC; PLATELET ESTIMATE NORMAL
[2017-10-18 16:00] VITALS: BP 118/77
[2017-10-18] MEDS: DEXTROSE 5% WATER 1,000 ML IV SCH (17:11)
[2017-10-18 20:00] VITALS: BP 125/78
[2017-10-18] MEDS: ENOXAPARIN 30MG/0.3ML SYR SUBCUT SCH (20:00)
[2017-10-19] VITALS: BP 118/75
[2017-10-19] MEDS: IPRATROPIUM/ALBUTEROL 0.5-3(2.5)MG/3ML NEB HHN SCH ×6 (01:22→22:07)
[2017-10-19 04:00] VITALS: BP 115/71
[2017-10-19 06:14] LABS: HEMATOCRIT. 33.4 % (42.0-52.0); HEMOGLOBIN. 10.6 g/dL (14.0-18.0); MEAN CORPUSCULAR HEMOGLOBIN 29.7 pg (28.0-32.0); MEAN CORPUSCULAR VOLUME 93.4 fL (80.0-94.0); MEAN PLATELET VOLUME 8.5 fl (7.4-10.4); PLATELET 358 x1000/uL (130-400); RED BLOOD CELL COUNT 3.57 mill/uL (4.7-6.1); RED CELL DISTRIBUTION WIDTH 19.7 % (11.6-14.6)
[2017-10-19] MEDS: BLOOD SUGAR DIAGNOSTIC STRIP TEST SCH ×5 (06:28→22:00)
[2017-10-19] MEDS: INSULIN LISPRO 100 UNITS/ML SUBCUT SCH ×4 (06:29→21:00)
[2017-10-19] MEDS: DEXTROSE 5% WATER 1,000 ML IV SCH ×2 (06:38→16:25)
[2017-10-19] MEDS: LEVOTHYROXINE SODIUM 75MCG TABLET NG SCH (06:39)
[2017-10-19] MEDS: PIPERACILLIN/TAZ 3.375G PREMIX 50 ML IV SCH ×2 (06:39→16:25)
[2017-10-19 07:24] LABS: CHLORIDE 110 mEq/L (98-107)
[2017-10-19 08:00] VITALS: BP 106/69
[2017-10-19] MEDS: PANTOPRAZOLE SODIUM 40 MG/VIAL IV SCH (08:50)
[2017-10-19] MEDS: FOLIC ACID/VITAMIN B COMP W-C TABLET PO SCH (08:50)
[2017-10-19] MEDS: ZINC SULFATE 220 MG ( 50 ) CAPSULE PO SCH (08:50)
[2017-10-19] MEDS: LIOTHYRONINE SODIUM 5MCG TABLET NG SCH ×2 (08:50→17:21)
[2017-10-19] MEDS: ASCORBIC ACID 250 MG TABLET PO SCH ×2 (08:50→21:41)
[2017-10-19] MEDS: VANCOMYCIN 750 MG PREMIX 150 ML IV SCH (08:54)
[2017-10-19 09:48] LABS: BG BASE EXCESS 1.1 mmol/L (-2.0-2.0); BG CARBOXYHEMOGLOBIN 0.5 % (0.5-1.5); BG DEOXYHEMOGLOBIN 13.5 % (0.0-5.0); BG FRACTION INSPIRED OXYGEN 21; BG HCO3 ACT 28.2 mmol/L (22.0-26.0); BG METHEMOGLOBIN 0.3 % (0.0-1.5); BG OXYGEN SATURATION 86.4 % (92.0-98.5); BG OXYHEMOGLOBIN 85.7 % (94.0-97.0); BG PCO2 56.7 mmHg (35.0-45.0); BG PH 7.314 (7.350-7.450); BG PO2 57.9 mmHg (75.0-100.0); BG SAMPLE SITE LEFT BRACHIAL; BG TOTAL HEMOGLOBIN 11.2 g/dL (12.0-18.0); BG VENT MODE ROOM AIR
[2017-10-19 11:46] LABS: NUCLEATED RED BLOOD CELLS 1 /100 WBC; PLATELET ESTIMATE NORMAL
[2017-10-19 12:00] VITALS: BP 110/64
[2017-10-19 16:00] VITALS: BP 111/71
[2017-10-19 20:00] VITALS: BP 111/69
[2017-10-19] MEDS: ENOXAPARIN 30MG/0.3ML SYR SUBCUT SCH (20:00)
[2017-10-20] VITALS: BP 101/66
[2017-10-20] MEDS: IPRATROPIUM/ALBUTEROL 0.5-3(2.5)MG/3ML NEB HHN SCH ×4 (01:07→21:38)
[2017-10-20 04:00] VITALS: BP 112/69
[2017-10-20] MEDS: BLOOD SUGAR DIAGNOSTIC STRIP TEST SCH ×5 (06:45→21:22)
[2017-10-20] MEDS: LEVOTHYROXINE SODIUM 75MCG TABLET NG SCH (07:03)
[2017-10-20] MEDS: INSULIN LISPRO 100 UNITS/ML SUBCUT SCH ×4 (07:15→21:00)
[2017-10-20 07:19] LABS: HEMATOCRIT. 34.6 % (42.0-52.0); HEMOGLOBIN. 10.6 g/dL (14.0-18.0); MEAN CORPUSCULAR HEMOGLOBIN 28.9 pg (28.0-32.0); MEAN PLATELET VOLUME 8.6 fl (7.4-10.4); PLATELET 339 x1000/uL (130-400); RED BLOOD CELL COUNT 3.67 mill/uL (4.7-6.1)
[2017-10-20 08:00] VITALS: BP 117/66
[2017-10-20] MEDS: ZINC SULFATE 220 MG ( 50 ) CAPSULE PO SCH (09:37)
[2017-10-20] MEDS: ASCORBIC ACID 250 MG TABLET PO SCH ×2 (09:37→21:19)
[2017-10-20] MEDS: PANTOPRAZOLE SODIUM 40 MG/VIAL IV SCH (09:37)
[2017-10-20] MEDS: FOLIC ACID/VITAMIN B COMP W-C TABLET PO SCH (09:37)
[2017-10-20] MEDS: LIOTHYRONINE SODIUM 5MCG TABLET NG SCH ×2 (09:37→18:26)
[2017-10-20] MEDS: DEXTROSE 5% WATER 1,000 ML IV SCH (09:41)
[2017-10-20 12:00] VITALS: BP 111/66
[2017-10-20 13:04] LABS: NUCLEATED RED BLOOD CELLS 6 /100 WBC
[2017-10-20 13:05] LABS: PLATELET ESTIMATE NORMAL
[2017-10-20] MEDS ORDERED: SODIUM BICARBONATE 4% (2.4MEQ) 5ML VIAL IV ONE (13:28)
[2017-10-20] MEDS ORDERED: VANCOMYCIN 750 MG PREMIX 150 ML IV SCH (15:00)
[2017-10-20 16:00] VITALS: BP 121/71
[2017-10-20 20:00] VITALS: BP 100/60
[2017-10-20] MEDS: ENOXAPARIN 30MG/0.3ML SYR SUBCUT SCH (21:20)
[2017-10-20] MEDS: DEXTROSE 50% WATER 50ML SYRINGE IV PRN (21:24)
[2017-10-20] MEDS: PIPERACILLIN/TAZ 3.375G PREMIX 50 ML IV SCH (22:44)
[2017-10-21] VITALS: BP 98/71
[2017-10-21] MEDS: IPRATROPIUM/ALBUTEROL 0.5-3(2.5)MG/3ML NEB HHN SCH ×6 (02:10→20:29)
[2017-10-21 04:00] VITALS: BP 100/70
[2017-10-21] MEDS: LEVOTHYROXINE SODIUM 75MCG TABLET NG SCH (05:32)
[2017-10-21] MEDS: PIPERACILLIN/TAZ 3.375G PREMIX 50 ML IV SCH ×3 (05:32→22:07)
[2017-10-21] MEDS: DEXTROSE 5% WATER 1,000 ML IV SCH ×3 (05:33→21:56)
[2017-10-21] MEDS: DEXTROSE 50% WATER 50ML SYRINGE IV PRN ×2 (05:41→12:17)
[2017-10-21] MEDS: BLOOD SUGAR DIAGNOSTIC STRIP TEST SCH ×4 (05:45→21:38)
[2017-10-21] MEDS: INSULIN LISPRO 100 UNITS/ML SUBCUT SCH ×4 (05:52→21:00)
[2017-10-21 08:04] VITALS: BP 107/62
[2017-10-21 10:33] LABS: BG CARBOXYHEMOGLOBIN 0.3 % (0.5-1.5); BG FRACTION INSPIRED OXYGEN 32; BG HCO3 ACT 30.4 mmol/L (22.0-26.0); BG METHEMOGLOBIN 0.2 % (0.0-1.5); BG OXYHEMOGLOBIN 96.5 % (94.0-97.0); BG PH 7.361 (7.350-7.450); BG PO2 91.9 mmHg (75.0-100.0); BG SAMPLE SITE LEFT RADIAL; BG TOTAL HEMOGLOBIN 10.6 g/dL (12.0-18.0); BG VENT MODE NASAL CANNULA
[2017-10-21] MEDS: FOLIC ACID/VITAMIN B COMP W-C TABLET PO SCH (10:37)
[2017-10-21] MEDS: LIOTHYRONINE SODIUM 5MCG TABLET NG SCH ×2 (10:37→16:47)
[2017-10-21] MEDS: FAMOTIDINE 20MG TABLET NG SCH (10:38)
[2017-10-21] MEDS: ZINC SULFATE 220 MG ( 50 ) CAPSULE PO SCH (10:38)
[2017-10-21] MEDS: ASCORBIC ACID 250 MG TABLET PO SCH ×2 (10:38→22:01)
[2017-10-21 11:20] VITALS: BP 96/73
[2017-10-21 13:53] LABS: BG BASE EXCESS 0.2 mmol/L (-2.0-2.0); BG CARBOXYHEMOGLOBIN 0.1 % (0.5-1.5); BG DEOXYHEMOGLOBIN 3.4 % (0.0-5.0); BG FRACTION INSPIRED OXYGEN 28; BG METHEMOGLOBIN 0.3 % (0.0-1.5); BG OXYGEN SATURATION 96.6 % (92.0-98.5); BG OXYHEMOGLOBIN 96.2 % (94.0-97.0); BG PO2 88.7 mmHg (75.0-100.0); BG SAMPLE SITE LEFT RADIAL; BG VENT MODE NASAL CANNULA
[2017-10-21 15:30] VITALS: BP 98/65
[2017-10-21] MEDS: VANCOMYCIN 1 G PREMIX 200 ML IV SCH (17:39)
[2017-10-21 20:00] VITALS: BP 106/72
[2017-10-21] MEDS: ENOXAPARIN 30MG/0.3ML SYR SUBCUT SCH (22:02)
[2017-10-22] VITALS: BP 99/57
[2017-10-22] MEDS: IPRATROPIUM/ALBUTEROL 0.5-3(2.5)MG/3ML NEB HHN SCH ×5 (00:18→21:14)
[2017-10-22 04:00] VITALS: BP 107/64
[2017-10-22] MEDS: BLOOD SUGAR DIAGNOSTIC STRIP TEST SCH ×4 (05:55→20:19)
[2017-10-22] MEDS: INSULIN LISPRO 100 UNITS/ML SUBCUT SCH ×4 (05:55→20:19)
[2017-10-22] MEDS: PIPERACILLIN/TAZ 3.375G PREMIX 50 ML IV SCH ×3 (05:55→22:21)
[2017-10-22] MEDS: LEVOTHYROXINE SODIUM 75MCG TABLET NG SCH (05:55)
[2017-10-22 08:00] VITALS: BP 113/48
[2017-10-22] MEDS: ASCORBIC ACID 250 MG TABLET PO SCH ×2 (09:36→20:18)
[2017-10-22] MEDS: LIOTHYRONINE SODIUM 5MCG TABLET NG SCH ×2 (09:36→18:07)
[2017-10-22] MEDS: ZINC SULFATE 220 MG ( 50 ) CAPSULE PO SCH (09:36)
[2017-10-22] MEDS: FAMOTIDINE 20MG TABLET NG SCH (09:36)
[2017-10-22] MEDS: FOLIC ACID/VITAMIN B COMP W-C TABLET PO SCH (09:36)
[2017-10-22 12:00] VITALS: BP 116/63
[2017-10-22] MEDS: DEXTROSE 5% WATER 1,000 ML IV SCH (13:01)
[2017-10-22 16:00] VITALS: BP 111/66
[2017-10-22 20:00] VITALS: BP 98/54
[2017-10-22] MEDS: ENOXAPARIN 30MG/0.3ML SYR SUBCUT SCH (20:19)
[2017-10-23] VITALS: BP 99/60
[2017-10-23] MEDS: IPRATROPIUM/ALBUTEROL 0.5-3(2.5)MG/3ML NEB HHN SCH ×6 (01:40→21:10)
[2017-10-23] MEDS: DEXTROSE 5% WATER 1,000 ML IV SCH (02:02)
[2017-10-23 04:00] VITALS: BP 101/42
[2017-10-23] MEDS: VANCOMYCIN 1 G PREMIX 200 ML IV SCH (05:29)
[2017-10-23] MEDS: BLOOD SUGAR DIAGNOSTIC STRIP TEST SCH ×4 (06:00→21:18)
[2017-10-23] MEDS: LEVOTHYROXINE SODIUM 75MCG TABLET NG SCH (06:00)
[2017-10-23] MEDS: INSULIN LISPRO 100 UNITS/ML SUBCUT SCH ×4 (06:01→21:00)
[2017-10-23 06:22] LABS: BASOPHILS % 0.5 % (0.0-2.0); EOSINOPHILS % 0.5 % (0.0-5.0); HEMOGLOBIN. 9.9 g/dL (14.0-18.0); LYMPHOCYTES % 7.2 % (20.0-50.0); MEAN CORPUSCULAR VOLUME 93.4 fL (80.0-94.0); MEAN PLATELET VOLUME 8.4 fl (7.4-10.4); MONOCYTES % 5.2 % (2.0-8.0); NEUTROPHILS % 86.6 % (40.0-76.0); PLATELET 251 x1000/uL (130-400); RED BLOOD CELL COUNT 3.42 mill/uL (4.7-6.1); RED CELL DISTRIBUTION WIDTH 20.3 % (11.6-14.6)
[2017-10-23] MEDS: PIPERACILLIN/TAZ 3.375G PREMIX 50 ML IV SCH ×3 (07:08→22:01)
[2017-10-23 07:12] LABS: PHOSPHORUS 3.2 mg/dL (2.5-4.9)
[2017-10-23 08:00] VITALS: BP 102/49
[2017-10-23] MEDS: ZINC SULFATE 220 MG ( 50 ) CAPSULE PO SCH (09:16)
[2017-10-23] MEDS: FAMOTIDINE 20MG TABLET NG SCH (09:16)
[2017-10-23] MEDS: ASCORBIC ACID 250 MG TABLET PO SCH ×2 (09:16→21:37)
[2017-10-23] MEDS: FOLIC ACID/VITAMIN B COMP W-C TABLET PO SCH (09:16)
[2017-10-23] MEDS: LIOTHYRONINE SODIUM 5MCG TABLET NG SCH ×2 (09:16→17:15)
[2017-10-23 12:27] VITALS: BP 112/53
[2017-10-23 16:00] VITALS: BP 117/51
[2017-10-23 20:00] VITALS: BP 109/59
[2017-10-23] MEDS: ENOXAPARIN 30MG/0.3ML SYR SUBCUT SCH (21:38)
[2017-10-24] VITALS: BP 103/55
[2017-10-24] MEDS: IPRATROPIUM/ALBUTEROL 0.5-3(2.5)MG/3ML NEB HHN SCH ×6 (00:35→20:25)
[2017-10-24 04:00] VITALS: BP 109/53
[2017-10-24] MEDS: BLOOD SUGAR DIAGNOSTIC STRIP TEST SCH ×4 (05:46→20:38)
[2017-10-24] MEDS: INSULIN LISPRO 100 UNITS/ML SUBCUT SCH ×4 (05:46→20:39)
[2017-10-24] MEDS: LEVOTHYROXINE SODIUM 75MCG TABLET NG SCH (06:03)
[2017-10-24] MEDS: PIPERACILLIN/TAZ 3.375G PREMIX 50 ML IV SCH ×3 (06:04→23:11)
[2017-10-24 08:00] VITALS: BP 89/47
[2017-10-24] MEDS: LIOTHYRONINE SODIUM 5MCG TABLET NG SCH ×2 (09:06→17:38)
[2017-10-24] MEDS: ZINC SULFATE 220 MG ( 50 ) CAPSULE PO SCH (09:06)
[2017-10-24] MEDS: FOLIC ACID/VITAMIN B COMP W-C TABLET PO SCH (09:06)
[2017-10-24] MEDS: FAMOTIDINE 20MG TABLET NG SCH (09:06)
[2017-10-24] MEDS: ASCORBIC ACID 250 MG TABLET PO SCH ×2 (09:07→20:32)
[2017-10-24 12:00] VITALS: BP 95/48
[2017-10-24 16:00] VITALS: BP 90/49
[2017-10-24] MEDS: VANCOMYCIN 1 G PREMIX 200 ML IV SCH (17:39)
[2017-10-24 20:00] VITALS: BP 101/59
[2017-10-24] MEDS: ENOXAPARIN 30MG/0.3ML SYR SUBCUT SCH (20:32)
[2017-10-24] MEDS: MIDODRINE HCL 5MG TABLET NG SCH (20:32)
[2017-10-25] VITALS (7 sets, daily range): BP systolic 90–124; BP diastolic 46–58
[2017-10-25] MEDS: IPRATROPIUM/ALBUTEROL 0.5-3(2.5)MG/3ML NEB HHN SCH ×6 (00:07→21:53)
[2017-10-25] MEDS: INSULIN LISPRO 100 UNITS/ML SUBCUT SCH ×4 (05:38→21:00)
[2017-10-25] MEDS: BLOOD SUGAR DIAGNOSTIC STRIP TEST SCH ×4 (05:38→21:00)
[2017-10-25] MEDS: LEVOTHYROXINE SODIUM 75MCG TABLET NG SCH (05:53)
[2017-10-25] MEDS: PIPERACILLIN/TAZ 3.375G PREMIX 50 ML IV SCH ×3 (06:00→22:58)
[2017-10-25 07:01] LABS: HEMATOCRIT. 26.9 % (42.0-52.0); HEMOGLOBIN. 8.5 g/dL (14.0-18.0); MEAN CORPUSCULAR HEMOGLOBIN 29.4 pg (28.0-32.0); MEAN CORPUSCULAR VOLUME 93.1 fL (80.0-94.0); MEAN PLATELET VOLUME 8.6 fl (7.4-10.4); PLATELET 246 x1000/uL (130-400); RED BLOOD CELL COUNT 2.89 mill/uL (4.7-6.1); RED CELL DISTRIBUTION WIDTH 20.4 % (11.6-14.6)
[2017-10-25] MEDS: FAMOTIDINE 20MG TABLET NG SCH (10:17)
[2017-10-25] MEDS: MIDODRINE HCL 5MG TABLET NG SCH ×4 (10:18→22:03)
[2017-10-25] MEDS: FOLIC ACID/VITAMIN B COMP W-C TABLET PO SCH (10:18)
[2017-10-25] MEDS: ZINC SULFATE 220 MG ( 50 ) CAPSULE PO SCH (10:18)
[2017-10-25] MEDS: ASCORBIC ACID 250 MG TABLET PO SCH ×2 (10:18→22:00)
[2017-10-25] MEDS: LIOTHYRONINE SODIUM 5MCG TABLET NG SCH ×2 (10:18→17:07)
[2017-10-25 13:06] LABS: NUCLEATED RED BLOOD CELLS 6 /100 WBC; PLATELET ESTIMATE NORMAL
[2017-10-25 19:15] LABS: BG BASE EXCESS 2.6 mmol/L (-2.0-2.0); BG CARBOXYHEMOGLOBIN 0.4 % (0.5-1.5); BG DEOXYHEMOGLOBIN 12.9 % (0.0-5.0); BG FRACTION INSPIRED OXYGEN 21; BG HCO3 ACT 30.8 mmol/L (22.0-26.0); BG METHEMOGLOBIN 0.2 % (0.0-1.5); BG OXYHEMOGLOBIN 86.5 % (94.0-97.0); BG PCO2 71.1 mmHg (35.0-45.0); BG PH 7.254 (7.350-7.450); BG SAMPLE SITE RIGHT RADIAL; BG TOTAL HEMOGLOBIN 8.9 g/dL (12.0-18.0); BG VENT MODE ROOM AIR
[2017-10-25] MEDS: ENOXAPARIN 30MG/0.3ML SYR SUBCUT SCH (22:01)
[2017-10-25] MEDS: DEXTROSE 50% WATER 50ML SYRINGE IV PRN (22:09)
[2017-10-26] VITALS (15 sets, daily range): BP systolic 92–146; BP diastolic 36–68
[2017-10-26] MEDS: IPRATROPIUM/ALBUTEROL 0.5-3(2.5)MG/3ML NEB HHN SCH ×6 (01:14→21:55)
[2017-10-26] MEDS: VANCOMYCIN 1 G PREMIX 200 ML IV SCH (05:41)
[2017-10-26] MEDS: BLOOD SUGAR DIAGNOSTIC STRIP TEST SCH ×4 (06:03→21:09)
[2017-10-26] MEDS: MIDODRINE HCL 5MG TABLET NG SCH ×3 (06:13→21:09)
[2017-10-26 06:58] LABS: HEMATOCRIT. 23.8 % (42.0-52.0); HEMOGLOBIN. 7.6 g/dL (14.0-18.0); MEAN CORPUSCULAR VOLUME 93.6 fL (80.0-94.0); MEAN PLATELET VOLUME 8.3 fl (7.4-10.4); PLATELET 179 x1000/uL (130-400); RED BLOOD CELL COUNT 2.55 mill/uL (4.7-6.1); RED CELL DISTRIBUTION WIDTH 19.7 % (11.6-14.6)
[2017-10-26] MEDS: INSULIN LISPRO 100 UNITS/ML SUBCUT SCH ×4 (07:20→21:00)
[2017-10-26 07:42] LABS: CHLORIDE 94 mEq/L (98-107)
[2017-10-26 07:53] LABS: LDL CHOLESTEROL 82 mg/dL (5-100)
[2017-10-26 07:54] LABS: HDL CHOLESTEROL 45 mg/dL (40-59)
[2017-10-26] MEDS: PIPERACILLIN/TAZ 3.375G PREMIX 50 ML IV SCH ×3 (08:08→23:54)
[2017-10-26] MEDS: ZINC SULFATE 220 MG ( 50 ) CAPSULE PO SCH (08:13)
[2017-10-26] MEDS: FOLIC ACID/VITAMIN B COMP W-C TABLET PO SCH (08:13)
[2017-10-26] MEDS: ASCORBIC ACID 250 MG TABLET PO SCH ×2 (08:13→21:09)
[2017-10-26] MEDS: FAMOTIDINE 20MG TABLET NG SCH (08:13)
[2017-10-26] MEDS: LEVOTHYROXINE SODIUM 75MCG TABLET NG SCH (08:19)
[2017-10-26] MEDS: LIOTHYRONINE SODIUM 5MCG TABLET NG SCH ×2 (08:20→17:26)
[2017-10-26] MEDS: DEXTROSE 50% WATER 50ML SYRINGE IV PRN (12:20)
[2017-10-26 13:40] LABS: NUCLEATED RED BLOOD CELLS 2 /100 WBC; PLATELET ESTIMATE NORMAL
[2017-10-26] MEDS: ENOXAPARIN 30MG/0.3ML SYR SUBCUT SCH (20:16)
[2017-10-27] VITALS (12 sets, daily range): BP systolic 90–115; BP diastolic 48–72
[2017-10-27] MEDS: IPRATROPIUM/ALBUTEROL 0.5-3(2.5)MG/3ML NEB HHN SCH ×6 (01:32→21:08)
[2017-10-27] MEDS: MIDODRINE HCL 5MG TABLET NG SCH ×3 (06:06→21:15)
[2017-10-27] MEDS: LEVOTHYROXINE SODIUM 75MCG TABLET NG SCH (06:06)
[2017-10-27] MEDS: BLOOD SUGAR DIAGNOSTIC STRIP TEST SCH ×4 (06:06→21:14)
[2017-10-27] MEDS: INSULIN LISPRO 100 UNITS/ML SUBCUT SCH ×4 (06:42→21:00)
[2017-10-27 06:52] LABS: HEMATOCRIT. 26.5 % (42.0-52.0); HEMOGLOBIN. 8.4 g/dL (14.0-18.0); MEAN CORPUSCULAR HEMOGLOBIN 29.2 pg (28.0-32.0); MEAN CORPUSCULAR VOLUME 91.5 fL (80.0-94.0); MEAN PLATELET VOLUME 8.6 fl (7.4-10.4); PLATELET 171 x1000/uL (130-400); RED BLOOD CELL COUNT 2.89 mill/uL (4.7-6.1); RED CELL DISTRIBUTION WIDTH 21.4 % (11.6-14.6)
[2017-10-27] MEDS: ZINC SULFATE 220 MG ( 50 ) CAPSULE PO SCH (08:00)
[2017-10-27] MEDS: FAMOTIDINE 20MG TABLET NG SCH (08:00)
[2017-10-27] MEDS: ASCORBIC ACID 250 MG TABLET PO SCH ×2 (08:00→21:14)
[2017-10-27] MEDS: FOLIC ACID/VITAMIN B COMP W-C TABLET PO SCH (08:01)
[2017-10-27] MEDS: LIOTHYRONINE SODIUM 5MCG TABLET NG SCH ×2 (08:04→17:14)
[2017-10-27 08:50] LABS: BG BASE EXCESS -0.9 mmol/L (-2.0-2.0); BG BILEVEL POS AIRWAY PRESSURE 15/5; BG CARBOXYHEMOGLOBIN 0.2 % (0.5-1.5); BG HCO3 ACT 26.9 mmol/L (22.0-26.0); BG METHEMOGLOBIN 0.3 % (0.0-1.5); BG OXYHEMOGLOBIN 97.5 % (94.0-97.0); BG PCO2 62.1 mmHg (35.0-45.0); BG PH 7.254 (7.350-7.450); BG PO2 113.1 mmHg (75.0-100.0); BG SAMPLE SITE RIGHT RADIAL; BG TOTAL HEMOGLOBIN 9.3 g/dL (12.0-18.0); BG VENT MODE MASK - BIPAP; BG VENT RATE 14 set
[2017-10-27] MEDS: SODIUM CHLORIDE 0.9% 1,000 ML IV SCH (10:42)
[2017-10-27 16:52] LABS: BG BASE EXCESS -0.7 mmol/L (-2.0-2.0); BG BILEVEL POS AIRWAY PRESSURE ST=15/5; BG CARBOXYHEMOGLOBIN 0.4 % (0.5-1.5); BG DEOXYHEMOGLOBIN 3.3 % (0.0-5.0); BG FRACTION INSPIRED OXYGEN 60; BG HCO3 ACT 27.8 mmol/L (22.0-26.0); BG METHEMOGLOBIN 0.2 % (0.0-1.5); BG OXYGEN SATURATION 96.7 % (92.0-98.5); BG OXYHEMOGLOBIN 96.1 % (94.0-97.0); BG PCO2 70.4 mmHg (35.0-45.0); BG PH 7.214 (7.350-7.450); BG PO2 96.5 mmHg (75.0-100.0); BG PRESSURE SUPPORT 10; BG SAMPLE SITE LEFT RADIAL; BG TOTAL HEMOGLOBIN 8.8 g/dL (12.0-18.0); BG VENT MODE MASK - BIPAP; BG VENT RATE 18 set
[2017-10-27] MEDS: ENOXAPARIN 30MG/0.3ML SYR SUBCUT SCH (20:39)
[2017-10-28] VITALS (13 sets, daily range): BP systolic 83–115; BP diastolic 49–86
[2017-10-28] MEDS: IPRATROPIUM/ALBUTEROL 0.5-3(2.5)MG/3ML NEB HHN SCH ×6 (00:18→21:26)
[2017-10-28] MEDS: SODIUM CHLORIDE 0.9% 1,000 ML IV SCH ×2 (03:23→20:11)
[2017-10-28 03:25] LABS: NUCLEATED RED BLOOD CELLS 1 /100 WBC
[2017-10-28 03:26] LABS: PLATELET ESTIMATE NORMAL
[2017-10-28] MEDS: MIDODRINE HCL 5MG TABLET NG SCH (06:04)
[2017-10-28] MEDS: LEVOTHYROXINE SODIUM 75MCG TABLET NG SCH (06:04)
[2017-10-28 06:25] LABS: BASOPHILS % 0.7 % (0.0-2.0); EOSINOPHILS % 0.3 % (0.0-5.0); HEMOGLOBIN. 8.4 g/dL (14.0-18.0); LYMPHOCYTES % 7.2 % (20.0-50.0); MEAN CORPUSCULAR HEMOGLOBIN 29.6 pg (28.0-32.0); MEAN CORPUSCULAR VOLUME 91.4 fL (80.0-94.0); MEAN PLATELET VOLUME 8.7 fl (7.4-10.4); MONOCYTES % 7.2 % (2.0-8.0); NEUTROPHILS % 84.6 % (40.0-76.0); PLATELET 151 x1000/uL (130-400); RED BLOOD CELL COUNT 2.84 mill/uL (4.7-6.1); RED CELL DISTRIBUTION WIDTH 21.1 % (11.6-14.6)
[2017-10-28] MEDS: INSULIN LISPRO 100 UNITS/ML SUBCUT SCH ×4 (06:47→21:00)
[2017-10-28] MEDS: BLOOD SUGAR DIAGNOSTIC STRIP TEST SCH ×4 (06:47→21:00)
[2017-10-28] MEDS: ASCORBIC ACID 250 MG TABLET PO SCH (09:34)
[2017-10-28] MEDS: FAMOTIDINE 20MG TABLET NG SCH (09:34)
[2017-10-28] MEDS: LIOTHYRONINE SODIUM 5MCG TABLET NG SCH (09:34)
[2017-10-28] MEDS: ZINC SULFATE 220 MG ( 50 ) CAPSULE PO SCH (09:34)
[2017-10-28] MEDS: FOLIC ACID/VITAMIN B COMP W-C TABLET PO SCH (09:34)
[2017-10-28] MEDS ORDERED: MORPHINE SULFATE 4 MG/ML CPJ (NOT FOR IM USE) IV PRN (18:30)
[2017-10-28] MEDS: ENOXAPARIN 30MG/0.3ML SYR SUBCUT SCH (20:11)
[2017-10-29] VITALS (12 sets, daily range): BP systolic 76–125; BP diastolic 47–62
[2017-10-29] MEDS: IPRATROPIUM/ALBUTEROL 0.5-3(2.5)MG/3ML NEB HHN SCH ×6 (01:14→20:49)
[2017-10-29] MEDS: INSULIN LISPRO 100 UNITS/ML SUBCUT SCH ×4 (06:26→20:45)
[2017-10-29] MEDS: BLOOD SUGAR DIAGNOSTIC STRIP TEST SCH ×4 (06:26→20:45)
[2017-10-29] MEDS: DEXT 5%/0.45% NACL 1000ML 1,000 ML IV SCH (13:22)
[2017-10-29] MEDS: MORPHINE SULFATE 250 MG in DEXT 5% WATER 240 ML IV PRN (13:41)
[2017-10-29] MEDS: LACTOBACILLUS GG CAPSULE GT SCH (17:45)
[2017-10-29] MEDS ORDERED: LOPERAMIDE 2 MG/10 ML UDC PO PRN (18:00)
[2017-10-29] MEDS ORDERED: FUROSEMIDE 40MG/4ML VIAL IVP NR (18:15)
[2017-10-29] MEDS: ENOXAPARIN 30MG/0.3ML SYR SUBCUT SCH (20:47)
[2017-10-30] VITALS (12 sets, daily range): BP systolic 70–91; BP diastolic 32–54
[2017-10-30] MEDS: IPRATROPIUM/ALBUTEROL 0.5-3(2.5)MG/3ML NEB HHN SCH ×6 (00:22→20:12)
[2017-10-30] MEDS: DEXT 5%/0.45% NACL 1000ML 1,000 ML IV SCH ×2 (01:35→12:17)
[2017-10-30 06:28] LABS: MEAN CORPUSCULAR HEMOGLOBIN 29.3 pg (28.0-32.0); MEAN CORPUSCULAR VOLUME 92.2 fL (80.0-94.0); MEAN PLATELET VOLUME 8.5 fl (7.4-10.4); PLATELET 101 x1000/uL (130-400); RED BLOOD CELL COUNT 2.16 mill/uL (4.7-6.1); RED CELL DISTRIBUTION WIDTH 21.3 % (11.6-14.6)
[2017-10-30] MEDS: INSULIN LISPRO 100 UNITS/ML SUBCUT SCH ×4 (06:46→21:06)
[2017-10-30] MEDS: BLOOD SUGAR DIAGNOSTIC STRIP TEST SCH ×4 (06:46→20:12)
[2017-10-30 06:49] LABS: HEMOGLOBIN. 6.4 g/dL (14.0-18.0)
[2017-10-30] MEDS: LACTOBACILLUS GG CAPSULE GT SCH (08:33)
[2017-10-31] VITALS: BP 81/50
[2017-10-31 00:01] LABS: PLATELET ESTIMATE DECREASED
[2017-10-31] MEDS: IPRATROPIUM/ALBUTEROL 0.5-3(2.5)MG/3ML NEB HHN SCH ×6 (00:42→20:29)
[2017-10-31 04:00] VITALS: BP 142/63
[2017-10-31] MEDS: BLOOD SUGAR DIAGNOSTIC STRIP TEST SCH ×4 (06:32→22:14)
[2017-10-31 08:00] VITALS: BP 107/55
[2017-10-31] MEDS: LACTOBACILLUS GG CAPSULE GT SCH (08:59)
[2017-10-31] MEDS: INSULIN LISPRO 100 UNITS/ML SUBCUT SCH ×4 (09:18→22:35)
[2017-10-31 12:00] VITALS: BP 107/50
[2017-10-31] MEDS: DEXT 5%/0.45% NACL 1000ML 1,000 ML IV SCH (12:23)
[2017-10-31 16:00] VITALS: BP 100/60
[2017-10-31 20:00] VITALS: BP 145/108
[2017-11-01] VITALS: BP 65/38
[2017-11-01] MEDS: IPRATROPIUM/ALBUTEROL 0.5-3(2.5)MG/3ML NEB HHN SCH ×2 (00:18→04:21)
[2017-11-01 04:00] VITALS: BP 74/33
[2017-11-01] MEDS: BLOOD SUGAR DIAGNOSTIC STRIP TEST SCH ×2 (07:22→11:40)
[2017-11-01] MEDS: INSULIN LISPRO 100 UNITS/ML SUBCUT SCH ×2 (07:58→11:52)
[2017-11-01 08:00] VITALS: BP 54/32
[2017-11-01] MEDS: LACTOBACILLUS GG CAPSULE GT SCH (08:03)
[2017-11-01] MEDS: DEXT 5%/0.45% NACL 1000ML 1,000 ML IV SCH (11:14)
[2017-11-01 12:00] VITALS: BP 74/28
[2017-11-01] MEDS: MORPHINE SULFATE 250 MG in DEXT 5% WATER 240 ML IV PRN (13:29)
[2017-11-01 16:00] VITALS: BP 65/41
[2017-11-01 18:30] VITALS: BP 45/26
== END 2017-11-01 19:30 | disposition expired | DRG 871 ==
LOC: ER 21:34 → 5WST 23:51 → EDBEDREQTM 23:57 → EDBEDREQ 23:57 → EDBEDREQSVC 10-16 07:25 → ENRESERV 10-16 09:51 → 3WST 10-25 21:09 → 6EST 10-31 00:30
PROVIDERS: ADMIT Internal Medicine Pulmonary Disease; ATTEND Internal Medicine Pulmonary Disease
PROC: 0W9B3ZZ Drainage of Left Pleural Cavity, Percutaneous Approach (ICD-10-PCS; principal; 2017-10-20)
PROC: 5A09557 Assistance with Respiratory Ventilation, Greater than 96 Consecutive Hours, Continuous Positive Airway Pressure (ICD-10-PCS; 2017-10-25)
PROC: 30233N1 Transfusion of Nonautologous Red Blood Cells into Peripheral Vein, Percutaneous Approach (ICD-10-PCS; 2017-10-27)
DX: A41.9 Sepsis, unspecified organism (principal); J69.0 Pneumonitis due to inhalation of food and vomit; J96.21 Acute and chronic respiratory failure with hypoxia; E43 Unspecified severe protein-calorie malnutrition; G93.41 Metabolic encephalopathy; I50.23 Acute on chronic systolic (congestive) heart failure; E87.0 Hyperosmolality and hypernatremia; R18.8 Other ascites; J96.22 Acute and chronic respiratory failure with hypercapnia; J18.1 Lobar pneumonia, unspecified organism; L89.153 Pressure ulcer of sacral region, stage 3; N18.4 Chronic kidney disease, stage 4 (severe); N17.9 Acute kidney failure, unspecified; E87.2 Acidosis; I13.0 Hypertensive heart and chronic kidney disease with heart failure and stage 1 through stage 4 chronic kidney disease, or unspecified chronic kidney disease; E87.1 Hypo-osmolality and hyponatremia; I42.0 Dilated cardiomyopathy; I27.20 Pulmonary hypertension, unspecified; G30.9 Alzheimer's disease, unspecified; F02.80 Dementia in other diseases classified elsewhere, unspecified severity, without behavioral disturbance, psychotic disturbance, mood disturbance, and anxiety; E87.5 Hyperkalemia; E86.0 Dehydration; D64.9 Anemia, unspecified; E78.5 Hyperlipidemia, unspecified; E03.9 Hypothyroidism, unspecified; E78.00 Pure hypercholesterolemia, unspecified; F20.9 Schizophrenia, unspecified; I25.10 Atherosclerotic heart disease of native coronary artery without angina pectoris; I25.5 Ischemic cardiomyopathy; J44.9 Chronic obstructive pulmonary disease, unspecified; K80.20 Calculus of gallbladder without cholecystitis without obstruction; M10.9 Gout, unspecified; R62.7 Adult failure to thrive; Z66 Do not resuscitate; Z51.5 Encounter for palliative care; I45.10 Unspecified right bundle-branch block; E11.22 Type 2 diabetes mellitus with diabetic chronic kidney disease; R77.1 Abnormality of globulin; I95.9 Hypotension, unspecified; Z79.4 Long term (current) use of insulin; Z82.49 Family history of ischemic heart disease and other diseases of the circulatory system; Z95.0 Presence of cardiac pacemaker; Z95.5 Presence of coronary angioplasty implant and graft; Z93.1 Gastrostomy status; Z79.899 Other long term (current) drug therapy
CPT/HCPCS: 32555; 36415; 36600; 51702; 71045; 71250; 80048; 80053; 80061; 80202; 81003; 82150; 82375; 82550; 82553; 82570; 82805; 82945; 82962; 83605; 83615; 83735; 83880; 83935; 83986; 84100; 84155; 84157; 84165; 84300; 84443; 84484; 85025; 85610; 85730; 86850; 86900; 86920; 87040; 87070; 87086; 87102; 87116; 87205; 89050; 93005; 93306; 94640; 94660; 96361; 96365; 96366; 96367; 99285; A6261; C1893; C9113; J1650; J1815; J1940; J2274; J2543; J3370; J3490; J7030; J7040; J7050; J7060; J7070; J7620; P9016